=== PATIENT | female | born 1990 | race Caucasian/White ===

== ENCOUNTER 2017-09-30 01:22 | Emergency (ER) | payer MEDICAID ==
[~2017-09-30] VITALS: Ht 152.4 cm; Wt 64.9 kg
[2017-09-30 01:27] VITALS: Ht 152.4 cm; Wt 64.9 kg
[2017-09-30 06:24] VITALS: BP 126/78
== END 2017-09-30 06:24 | disposition home or self-care (01) ==
LOC: ED 01:22
DX: J06.9 Acute upper respiratory infection, unspecified (principal); H92.02 Otalgia, left ear